=== PATIENT | female | born 1950 | race Caucasian/White ===

== ENCOUNTER 2024-10-20 15:32 | Inpatient (IN) | payer MEDICARE, BC ==
[~2024-10-20] VITALS: Ht 170.2 cm; Wt 77.0 kg
[~2024-10-20 15:32] MED LIST: AMLO5TAB16 PO; ATOR-429 PO; CLONOPIN; ESCI20TA PO; LANTUS SQ; METF-900 PO; OXYC80TA37 PO; VALS1TAB73 PO; ZOLP10TA PO; dilaudid PO
[2024-10-20] MEDS: HYDROmorphone 1 mg/ml syringe IV ONE (17:00)
[2024-10-20 17:26] LABS: BASOPHILS % (AUTO) 0.4 % (0-1); EOSINOPHILS % (AUTO) 0.3 % (0-6); HEMATOCRIT 44.9 % (35.0-45.0); HEMOGLOBIN 15.5 g/dl (12.0-16.0); LYMPHOCYTES # (AUTO) 1.7 X10'3 (1.1-4.8); LYMPHOCYTES % (AUTO) 17.9 % (21-51); MEAN CORPUSCULAR HEMOGLOBIN 32.8 PG (27.0-31.0); MEAN CORPUSCULAR HGB CONC 34.5 g/dL (33.0-36.5); MEAN CORPUSCULAR VOLUME 95.3 FL (78-98); MEAN PLATELET VOLUME 10.7 FL (7.4-10.4); MONOCYTES # (AUTO) 0.7 X10'3 (0-0.9); MONOCYTES % (AUTO) 7.6 % (2-12); NEUTROPHILS # (AUTO) 7.2 X10'3 (1.8-7.7); NEUTROPHILS % (AUTO) 73.8 % (42-75); PLATELET COUNT 285 X10'3 (140-440); RED BLOOD COUNT 4.71 X10'6 (4.20-5.60); RED CELL DISTRIBUTION WIDTH 14.5 % (11.5-14.5); WHITE BLOOD COUNT 9.8 X10'3 (4.5-11.0)
[2024-10-20 17:42] LABS: ALANINE AMINOTRANSFERASE 26 U/L (12-78); ALBUMIN 3.3 G/DL (3.4-5.0); ALBUMIN/GLOBULIN RATIO 0.8 (1.1-1.5); ALKALINE PHOSPHATASE 113 IU/L (46-116); ASPARTATE AMINO TRANSFERASE 21 U/L (10-37); BILIRUBIN,TOTAL 0.9 MG/DL (0.1-1.0); BLOOD UREA NITROGEN 13 MG/DL (7-18); BUN/CREATININE RATIO 13.5 (10.0-20.0); CALCIUM 8.8 MG/DL (8.5-10.1); CHLORIDE 102 MMOL/L (99-107); CREATININE 0.96 MG/DL (0.40-0.90); GLUCOSE 146 MG/DL (70-104); SODIUM 142 MMOL/L (135-145); TOTAL PROTEIN 7.4 G/DL (6.4-8.2); eCRCL 52 ML/MIN; eGFR 57 ML/MIN
[2024-10-20 17:47] LABS: POTASSIUM 1.9 MMOL/L (3.5-5.1)
[2024-10-20 17:50] LABS: LARGE PLATELETS FEW; PLATELET ESTIMATE NORMAL
[2024-10-20 17:54] LABS: ANION GAP 12 (8-16); TOTAL CARBON DIOXIDE 27.8 MMOL/L (24-32)
[2024-10-20 18:10] LABS: MAGNESIUM 1.9 MG/DL (1.5-2.4)
[2024-10-20] MEDS: potassium CL 10mEq/100ml bag 100 ML IV SCH (18:11)
[2024-10-20] MEDS: proCHLORperazine 10 MG/2 ml inj IV ONE (18:13)
[2024-10-20] MEDS: potassium Cl 20 mEq SR tablet PO STA (18:13)
[2024-10-20] MEDS: diphenhydrAMINE 50 mg/ml inj IV ONE (18:13)
[2024-10-20] MEDS: normal saline 1000ml 1,000 ML IV ONE (18:28)
[2024-10-20 18:30] LABS: APTT 28 SECONDS (22-32); INR 1.2 INR; PROTHROMBIN TIME 12.3 SECONDS (9.0-12.0)
[2024-10-20] MEDS ORDERED: magnesium sulf-water 4G/100mL 100 ML IV PRN (18:35)
[2024-10-20] MEDS ORDERED: ondansetron/PF 4mg/2ml inj IV PRN (18:35)
[2024-10-20] MEDS ORDERED: magnesium sulf-water 2g/50mL 50 ML IV PRN (18:35)
[2024-10-20] MEDS ORDERED: potassium Cl 20 mEq SR tablet PO PRN (18:35)
[2024-10-20] MEDS ORDERED: magnesium Cl slow-release 64mg tablet PO PRN (18:35)
[2024-10-20] MEDS ORDERED: acetaminophen 325mg tablet PO PRN (18:35)
[2024-10-20] MEDS ORDERED: glucagon, human recombinant 1mg kit SUBCUT PRN (18:40)
[2024-10-20] MEDS ORDERED: DEXTROSE 15 GM of carb/4 tabs (each vial/BOTTLE has 4 tablets) PO PRN ×2 (18:40)
[2024-10-20] MEDS ORDERED: dextrose 50%-water 50ml dispensing syringe IV PRN ×2 (18:40)
[2024-10-20] MEDS: magnesium sulf-water 2g/50mL 50 ML IV ONE ×2 (19:15→19:34)
[2024-10-20] MEDS: docusate sod 100mg capsule PO SCH (19:39)
[2024-10-20] MEDS: K and/or MAG REPLACEMENT MC SCH (19:40)
[2024-10-20] MEDS: nicotine 7mg patch - 24hr TD ONE (20:42)
[2024-10-20] MEDS: insulin glargine (Lantus) pen - multi-dose SQ SCH (21:00)
[2024-10-20] MEDS: heparin, porcine 5000 units/ml vial SQ SCH (21:09)
[2024-10-20 21:34] LABS: ANION GAP 10 (8-16); BLOOD UREA NITROGEN 11 MG/DL (7-18); BUN/CREATININE RATIO 13.6 (10.0-20.0); CALCIUM 8.6 MG/DL (8.5-10.1); CHLORIDE 105 MMOL/L (99-107); CREATININE 0.81 MG/DL (0.40-0.90); GLUCOSE 201 MG/DL (70-104); SODIUM 144 MMOL/L (135-145); TOTAL CARBON DIOXIDE 29.5 MMOL/L (24-32); eCRCL 61 ML/MIN; eGFR 70 ML/MIN
[2024-10-20 21:41] LABS: POTASSIUM 2.5 MMOL/L (3.5-5.1)
[2024-10-20] MEDS: INSULIN LISPRO 100 UNIT/ML INSULN.PEN MULTI-DOSE SQ SCH (22:05)
[2024-10-20 22:19] LABS: ABG BASE EXCESS 2.1 mmol/L (-2.0-3.0); ABG HCO3 25.5 mmol/L (21.0-28.0); ABG OXYGEN SATURATION 94.6 % (94.0-98.0); ABG PCO2 (T) 36.2 mmHg (32.0-45.0); ABG PH (T) 7.466 (7.350-7.450); ABG PO2 (T) 70.7 mmHg (83.0-108.0); ALLEN'S TEST POSITIVE; FCOHb 2.3 % (0.5-1.5); FHHb 5.3 % (0.0-5.0); FMetHb 0.3 % (0.0-1.5); FO2Hb 92.1 % (94.0-98.0); MODE ROOM AIR; PATIENT TEMPERATURE 37.1; TOTAL HEMOGLOBIN 14.7 G/dl (12.0-16.0)
[2024-10-20 22:49] LABS: BILIRUBIN,URINE NEGATIVE (Neg); CLARITY,URINE SLIGHTLY CLOUDY (Clear); COLOR,URINE YELLOW (Yellow); GLUCOSE, URINE NEGATIVE (Neg); KETONES,URINE TRACE mg/dl (Neg); LEUKOCYTE ESTERASE ,URINE NEGATIVE (Neg); NITRITES, URINE NEGATIVE (Neg); OCCULT BLOOD,URINE NEGATIVE (Neg); PROTEIN,URINE 100 mg/dl (Neg); UROBILINOGEN,URINE 0.2 E.U/dL (0.2-1.0)
[2024-10-20 22:56] LABS: UA COLLECTION TYPE URINAL
[2024-10-20 22:57] LABS: BACTERIA,URINE 4+ /HPF (Neg); SQUAMOUS EPITHELIAL CELL,UR FEW /LPF (FEW)
[2024-10-20 22:58] LABS: RBC,URINE NONE SEEN /HPF (0-2); WBC,URINE 0-4 /HPF (0-4)
[2024-10-20] MEDS ORDERED: TRAZ-251 PO (23:53)
[2024-10-20] MEDS ORDERED: CYCL-1 PO (23:53)
[2024-10-21] MEDS: amLODIPine 2.5mg tablet PO SCH (00:21)
[2024-10-21] MEDS: HYDROcodone/acetaminophen 10/325mg tab PO PRN (00:22)
[2024-10-21 04:09] LABS: BASOPHILS # (AUTO) 0.1 X10'3 (0-0.2); BASOPHILS % (AUTO) 0.7 % (0-1); EOSINOPHILS # (AUTO) 0.1 X10'3 (0-0.9); EOSINOPHILS % (AUTO) 1.4 % (0-6); HEMATOCRIT 43.8 % (35.0-45.0); HEMOGLOBIN 14.5 g/dl (12.0-16.0); LYMPHOCYTES # (AUTO) 2.1 X10'3 (1.1-4.8); MEAN CORPUSCULAR HEMOGLOBIN 32.5 PG (27.0-31.0); MEAN CORPUSCULAR HGB CONC 33.2 g/dL (33.0-36.5); MEAN PLATELET VOLUME 11.2 FL (7.4-10.4); MONOCYTES # (AUTO) 0.7 X10'3 (0-0.9); MONOCYTES % (AUTO) 8.5 % (2-12); NEUTROPHILS # (AUTO) 5.5 X10'3 (1.8-7.7); NEUTROPHILS % (AUTO) 64.4 % (42-75); PLATELET COUNT 245 X10'3 (140-440); RED BLOOD COUNT 4.47 X10'6 (4.20-5.60); RED CELL DISTRIBUTION WIDTH 14.9 % (11.5-14.5); WHITE BLOOD COUNT 8.6 X10'3 (4.5-11.0)
[2024-10-21 04:17] LABS: ALBUMIN 2.9 G/DL (3.4-5.0); ANION GAP 11 (8-16); BLOOD UREA NITROGEN 11 MG/DL (7-18); BUN/CREATININE RATIO 16.2 (10.0-20.0); CALCIUM 8.2 MG/DL (8.5-10.1); CHLORIDE 106 MMOL/L (99-107); CREATININE 0.68 MG/DL (0.40-0.90); GLUCOSE 137 MG/DL (70-104); MAGNESIUM 2.3 MG/DL (1.5-2.4); SODIUM 141 MMOL/L (135-145); TOTAL CARBON DIOXIDE 24.4 MMOL/L (24-32); eCRCL 73 ML/MIN; eGFR 85 ML/MIN
[2024-10-21 04:28] LABS: POTASSIUM 2.9 MMOL/L (3.5-5.1)
[2024-10-21] MEDS ORDERED: losartan 25mg tablet PO SCH (08:00)
[2024-10-21] MEDS: amLODIPine 5mg tablet PO SCH (08:13)
[2024-10-21] MEDS: ESCITALOPRAM 10 mg tablet 10 MG TABLET PO SCH (08:14)
[2024-10-21] MEDS: atorvastatin 20mg tablet PO SCH (08:15)
[2024-10-21] MEDS: losartan 50mg tablet PO ONE (08:15)
[2024-10-21] MEDS: INSULIN LISPRO 100 UNIT/ML INSULN.PEN MULTI-DOSE SQ SCH (09:00)
[2024-10-21] MEDS: potassium Cl 40MEQ/1/2NS 520ml 520 ML IV PRN (10:33)
[2024-10-21] MEDS: losartan 50mg tablet PO SCH (10:36)
[2024-10-21] MEDS: nicotine 7mg patch - 24hr TD SCH (10:37)
[2024-10-21 11:17] LABS: ALBUMIN 3.2 G/DL (3.4-5.0); ANION GAP 10 (8-16); BLOOD UREA NITROGEN 8 MG/DL (7-18); BUN/CREATININE RATIO 12.3 (10.0-20.0); CALCIUM 8.5 MG/DL (8.5-10.1); CHLORIDE 105 MMOL/L (99-107); CREATININE 0.65 MG/DL (0.40-0.90); GLUCOSE 217 MG/DL (70-104); SODIUM 141 MMOL/L (135-145); TOTAL CARBON DIOXIDE 25.9 MMOL/L (24-32); eCRCL 76 ML/MIN; eGFR 90 ML/MIN
[2024-10-21 11:22] LABS: POTASSIUM 2.4 MMOL/L (3.5-5.1)
[2024-10-21] MEDS: potassium Cl 20 mEq SR tablet PO PRN (14:39)
[2024-10-21] MEDS: hydrALAZINE 20mg/ml inj. IV PRN (14:40)
[2024-10-21] MEDS: LIDOcaine 5% patch TP SCH (14:49)
[2024-10-21 16:17] VITALS: BP 218/119; PULSE 95; RESP 16; TEMP 98.9; O2SAT 95
[2024-10-21] MEDS: cloNIDine 0.1 mg tablet PO ONE (16:36)
[2024-10-21] MEDS: HYDROmorphone 1 mg/ml syringe IV PRN (16:37)
[2024-10-21 17:10] VITALS: BP 212/84
[2024-10-21] MEDS: clonazePAM 1mg tablet PO SCH (17:29)
[2024-10-21 18:03] VITALS: BP 177/81
[2024-10-21] MEDS ORDERED: FLU VACC TS2024-25(6MOS UP)/PF 45 MCG/0.5 ML SYRINGE IMVAC ONE (18:05)
[2024-10-21] MEDS ORDERED: pneumococcal 23-VAL P-sac vacc 25 mcg/0.5ml vial IMVAC ONE (18:05)
[2024-10-21] MEDS: insulin glargine (Lantus) pen - multi-dose SQ SCH (21:00)
[2024-10-21 22:00] VITALS: BP 146/61; PULSE 59; RESP 14; TEMP 98.2; O2SAT 95
[2024-10-22] VITALS (7 sets, daily range): BP systolic 126–184; BP diastolic 51–81; PULSE 52–77; RESP 14–16; TEMP 98–98.7; O2SAT 95–97
[2024-10-22] MEDS: traZODone 50mg tablet PO PRN (00:43)
[2024-10-22 06:20] LABS: BASOPHILS # (AUTO) 0.1 X10'3 (0-0.2); EOSINOPHILS # (AUTO) 0.1 X10'3 (0-0.9); HEMATOCRIT 42.4 % (35.0-45.0); HEMOGLOBIN 14.3 g/dl (12.0-16.0); LYMPHOCYTES # (AUTO) 2.2 X10'3 (1.1-4.8)
[2024-10-22 06:22] LABS: BASOPHILS % (AUTO) 0.8 % (0-1); EOSINOPHILS % (AUTO) 1.3 % (0-6); LYMPHOCYTES % (AUTO) 30.2 % (21-51); MEAN CORPUSCULAR HEMOGLOBIN 32.8 PG (27.0-31.0); MEAN CORPUSCULAR HGB CONC 33.8 g/dL (33.0-36.5); MEAN PLATELET VOLUME 11.2 FL (7.4-10.4); MONOCYTES # (AUTO) 0.5 X10'3 (0-0.9); MONOCYTES % (AUTO) 7.1 % (2-12); NEUTROPHILS # (AUTO) 4.5 X10'3 (1.8-7.7); NEUTROPHILS % (AUTO) 60.6 % (42-75); PLATELET COUNT 245 X10'3 (140-440); RED BLOOD COUNT 4.37 X10'6 (4.20-5.60); RED CELL DISTRIBUTION WIDTH 14.6 % (11.5-14.5); WHITE BLOOD COUNT 7.4 X10'3 (4.5-11.0)
[2024-10-22 06:30] LABS: ALBUMIN 2.8 G/DL (3.4-5.0); ANION GAP 9 (8-16); BLOOD UREA NITROGEN 11 MG/DL (7-18); BUN/CREATININE RATIO 15.1 (10.0-20.0); CALCIUM 8.6 MG/DL (8.5-10.1); CHLORIDE 106 MMOL/L (99-107); CREATININE 0.73 MG/DL (0.40-0.90); GLUCOSE 147 MG/DL (70-104); MAGNESIUM 1.9 MG/DL (1.5-2.4); SODIUM 141 MMOL/L (135-145); THYROID STIMULATING HORMONE 1.94 ulU/ml (0.34-4.50); eCRCL 68 ML/MIN; eGFR 78 ML/MIN
[2024-10-22 06:50] LABS: POTASSIUM 3.4 MMOL/L (3.5-5.1)
[2024-10-22] MEDS ORDERED: LOSA50TA64 PO (09:03)
[2024-10-22] MEDS ORDERED: AMLO5TAB16 PO (09:41)
[2024-10-22] MEDS: cyclobenzaprine 10mg tablet PO PRN (10:16)
[2024-10-22] MEDS: HYDROcodone/acetaminophen 5mg/325mg tablet PO PRN (10:17)
[2024-10-22] MEDS ORDERED: POTA-207 PO (11:02)
[2024-10-22] MEDS: pneumococcal 23-VAL P-sac vacc 25 mcg/0.5ml vial IMVAC ONE (11:17)
[2024-10-22] MEDS: FLU VACC TS2024-25(6MOS UP)/PF 45 MCG/0.5 ML SYRINGE IMVAC ONE (11:19)
[2024-10-22] MEDS: HYDROmorphone inj. 0.5 MG/0.5 ML DISP.SYRIN IV PRN (19:36)
[2024-10-23 05:59] LABS: BASOPHILS # (AUTO) 0.1 X10'3 (0-0.2); EOSINOPHILS # (AUTO) 0.2 X10'3 (0-0.9); HEMOGLOBIN 15.5 g/dl (12.0-16.0); MONOCYTES # (AUTO) 0.5 X10'3 (0-0.9); MONOCYTES % (AUTO) 7.4 % (2-12); NEUTROPHILS # (AUTO) 3.8 X10'3 (1.8-7.7)
[2024-10-23 06:00] VITALS: BP 147/79; PULSE 79; RESP 14; TEMP 97.7; O2SAT 95
[2024-10-23 06:01] LABS: BASOPHILS % (AUTO) 1.2 % (0-1); EOSINOPHILS % (AUTO) 2.2 % (0-6); HEMATOCRIT 45.4 % (35.0-45.0); LYMPHOCYTES # (AUTO) 2.5 X10'3 (1.1-4.8); LYMPHOCYTES % (AUTO) 35.7 % (21-51); MEAN CORPUSCULAR HEMOGLOBIN 33.2 PG (27.0-31.0); MEAN CORPUSCULAR HGB CONC 34.1 g/dL (33.0-36.5); MEAN CORPUSCULAR VOLUME 97.3 FL (78-98); MEAN PLATELET VOLUME 10.9 FL (7.4-10.4); NEUTROPHILS % (AUTO) 53.5 % (42-75); PLATELET COUNT 274 X10'3 (140-440); RED BLOOD COUNT 4.67 X10'6 (4.20-5.60)
[2024-10-23 06:06] LABS: ALBUMIN 2.8 G/DL (3.4-5.0); ANION GAP 8 (8-16); BLOOD UREA NITROGEN 14 MG/DL (7-18); BUN/CREATININE RATIO 18.7 (10.0-20.0); CALCIUM 8.8 MG/DL (8.5-10.1); CHLORIDE 108 MMOL/L (99-107); CREATININE 0.75 MG/DL (0.40-0.90); GLUCOSE 154 MG/DL (70-104); MAGNESIUM 2.7 MG/DL (1.5-2.4); POTASSIUM 3.7 MMOL/L (3.5-5.1); SODIUM 142 MMOL/L (135-145); TOTAL CARBON DIOXIDE 25.7 MMOL/L (24-32); eCRCL 66 ML/MIN; eGFR 76 ML/MIN
[2024-10-23 06:29] LABS: LARGE PLATELETS FEW; PLATELET ESTIMATE NORMAL
[2024-10-23 10:00] VITALS: BP 198/79; PULSE 84; RESP 17; TEMP 97.6; O2SAT 97
[2024-10-23 10:36] VITALS: BP_SYST 197
[2024-10-23] MEDS: HYDROmorphone 1 mg/ml syringe IV ONE (10:36)
[2024-10-23] MEDS: spironolactone 25 MG tablet PO STA (10:36)
[2024-10-23] MEDS: clonazePAM 1mg tablet PO ONE (12:07)
[2024-10-23] MEDS ORDERED: SPIR25TA5 PO (13:16)
[2024-10-27 05:16] LABS: RENIN, PLASMA 0.412 ng/mL/hr (.)
[2024-10-27 15:08] LABS: ALDOSTERONE 4.6 ng/dL (.)
[2024-10-29] MEDS ORDERED: INSULIN LISPRO 100 UNIT/ML INSULN.PEN MULTI-DOSE SQ SCH (18:00)
== END 2024-10-23 14:25 | disposition home or self-care (01) | DRG 89 ==
LOC: ER 15:33 → ED HOLD 18:37 → ORTHO 4S 10-21 16:00
PROVIDERS: ADMIT Family Medicine; ATTEND Family Medicine
PROC: 3E02340 Introduction of Influenza Vaccine into Muscle, Percutaneous Approach (ICD-10-PCS; principal; 2024-10-21)
PROC: 3E0234Z Introduction of Serum, Toxoid and Vaccine into Muscle, Percutaneous Approach (ICD-10-PCS; 2024-10-21)
DX: S06.0X0A Concussion without loss of consciousness, initial encounter (principal); I69.351 Hemiplegia and hemiparesis following cerebral infarction affecting right dominant side; S22.31XA Fracture of one rib, right side, initial encounter for closed fracture; I16.0 Hypertensive urgency; G89.29 Other chronic pain; E87.6 Hypokalemia; I10 Essential (primary) hypertension; Z66 Do not resuscitate; E11.9 Type 2 diabetes mellitus without complications; R07.89 Other chest pain; T50.2X5A Adverse effect of carbonic-anhydrase inhibitors, benzothiadiazides and other diuretics, initial encounter; W05.0XXA Fall from non-moving wheelchair, initial encounter; Z79.4 Long term (current) use of insulin; Z79.899 Other long term (current) drug therapy; Z79.84 Long term (current) use of oral hypoglycemic drugs; Y93.89 Activity, other specified; Y92.89 Other specified places as the place of occurrence of the external cause; Y99.8 Other external cause status
CPT/HCPCS: 36415; 36600; 70450; 71101; 80048; 80053; 81001; 82088; 82570; 82803; 82948; 83036; 83735; 84132; 84133; 84244; 84300; 84443; 85008; 85018; 85025; 85610; 85730; 87081; 90686; 90732; 93005; 93975; 97161; 97530; 99291; G0378; J0360; J0780; J1171; J1200; J1644; J1815; J3480; J7030

== ENCOUNTER 2024-10-28 14:38 | Inpatient (IN) | payer BC, MEDICARE ==
[~2024-10-28] VITALS: Ht 170.2 cm; Wt 72.7 kg
[~2024-10-28 14:38] MED LIST changes: +CYCL-1 PO; -LANTUS SQ; +LOSA50TA64 PO; -OXYC80TA37 PO; +POTA-207 PO; +SPIR25TA5 PO; +TRAZ-251 PO; -VALS1TAB73 PO
[2024-10-28 15:56] LABS: BASOPHILS # (AUTO) 0.1 X10'3 (0-0.2); LYMPHOCYTES # (AUTO) 2.3 X10'3 (1.1-4.8); LYMPHOCYTES % (AUTO) 20.2 % (21-51); MEAN PLATELET VOLUME 10.7 FL (7.4-10.4); NEUTROPHILS # (AUTO) 7.9 X10'3 (1.8-7.7); WHITE BLOOD COUNT 11.2 X10'3 (4.5-11.0)
[2024-10-28 15:57] LABS: BASOPHILS % (AUTO) 0.6 % (0-1); EOSINOPHILS # (AUTO) 0.1 X10'3 (0-0.9); EOSINOPHILS % (AUTO) 0.5 % (0-6); HEMATOCRIT 52.7 % (35.0-45.0); MEAN CORPUSCULAR HEMOGLOBIN 32.9 PG (27.0-31.0); MEAN CORPUSCULAR HGB CONC 34.4 g/dL (33.0-36.5); MEAN CORPUSCULAR VOLUME 95.7 FL (78-98); MONOCYTES # (AUTO) 0.8 X10'3 (0-0.9); MONOCYTES % (AUTO) 7.6 % (2-12); NEUTROPHILS % (AUTO) 71.1 % (42-75); PLATELET COUNT 457 X10'3 (140-440); RED CELL DISTRIBUTION WIDTH 14.7 % (11.5-14.5)
[2024-10-28 16:03] LABS: HEMOGLOBIN 18.1 g/dl (12.0-16.0)
[2024-10-28 16:13] LABS: ALANINE AMINOTRANSFERASE 38 U/L (12-78); ALBUMIN 4.1 G/DL (3.4-5.0); ALBUMIN/GLOBULIN RATIO 0.9 (1.1-1.5); ALKALINE PHOSPHATASE 132 IU/L (46-116); ANION GAP 16 (8-16); ASPARTATE AMINO TRANSFERASE 33 U/L (10-37); BILIRUBIN,TOTAL 0.8 MG/DL (0.1-1.0); BLOOD UREA NITROGEN 33 MG/DL (7-18); BUN/CREATININE RATIO 23.2 (10.0-20.0); CALCIUM 9.7 MG/DL (8.5-10.1); CHLORIDE 103 MMOL/L (99-107); CREATININE 1.42 MG/DL (0.40-0.90); GLUCOSE 134 MG/DL (70-104); LIPASE 27 U/L (16-77); POTASSIUM 3.2 MMOL/L (3.5-5.1); SODIUM 138 MMOL/L (135-145); TOTAL CARBON DIOXIDE 19.1 MMOL/L (24-32); TOTAL PROTEIN 8.7 G/DL (6.4-8.2); eCRCL 35 ML/MIN; eGFR 36 ML/MIN
[2024-10-28 16:53] LABS: GIANT PLATELET FEW; LARGE PLATELETS FEW
[2024-10-28 16:54] LABS: PLATELET ESTIMATE NORMAL
[2024-10-28] MEDS: potassium Cl 20 mEq SR tablet PO STA (19:13)
[2024-10-28] MEDS: acetaminophen 1,000mg/100ml IV 100 ML IV ONE ×3 (19:19→22:20)
[2024-10-28] MEDS: proCHLORperazine 10 MG/2 ml inj IV ONE (19:20)
[2024-10-28] MEDS: normal saline 1000ml 1,000 ML IV ONE (19:20)
[2024-10-28] MEDS ORDERED: magnesium sulf-water 2g/50mL 50 ML IV PRN (21:05)
[2024-10-28] MEDS ORDERED: magnesium hydroxide 30ml (MOM) UD suspension PO PRN (21:05)
[2024-10-28] MEDS ORDERED: mag hydrox/Alum hydrox/simeth 30ml oral suspension PO PRN (21:05)
[2024-10-28] MEDS ORDERED: ondansetron/PF 4mg/2ml inj IV PRN (21:05)
[2024-10-28] MEDS ORDERED: potassium Cl 40MEQ/1/2NS 520ml 520 ML IV PRN (21:05)
[2024-10-28] MEDS ORDERED: magnesium sulf-water 4G/100mL 100 ML IV PRN (21:05)
[2024-10-28] MEDS ORDERED: potassium Cl 20 mEq SR tablet PO PRN (21:05)
[2024-10-28] MEDS ORDERED: magnesium Cl slow-release 64mg tablet PO PRN (21:05)
[2024-10-28] MEDS ORDERED: glucagon, human recombinant 1mg kit SUBCUT PRN (21:10)
[2024-10-28] MEDS: insulin glargine (Lantus) pen - multi-dose SQ SCH (21:10)
[2024-10-28] MEDS ORDERED: dextrose 50%-water 50ml dispensing syringe IV PRN ×2 (21:10)
[2024-10-28] MEDS ORDERED: DEXTROSE 15 GM of carb/4 tabs (each vial/BOTTLE has 4 tablets) PO PRN ×2 (21:10)
[2024-10-28 21:43] LABS: PRO BRAIN NATRIURETIC PEPTIDE 189 PG/ML (0-125)
[2024-10-28] MEDS: normal saline 1000ml 1,000 ML IV SCH (22:20)
[2024-10-28] MEDS: amLODIPine 5mg tablet PO ONE (22:21)
[2024-10-28] MEDS: cyclobenzaprine 10mg tablet PO ONE (22:21)
[2024-10-29] MEDS: acetaminophen 325mg tablet PO PRN (03:25)
[2024-10-29 03:30] LABS: BASOPHILS # (AUTO) 0.1 X10'3 (0-0.2); BASOPHILS % (AUTO) 0.8 % (0-1); EOSINOPHILS # (AUTO) 0.1 X10'3 (0-0.9); EOSINOPHILS % (AUTO) 1.1 % (0-6); HEMATOCRIT 50.1 % (35.0-45.0); HEMOGLOBIN 16.9 g/dl (12.0-16.0); LYMPHOCYTES # (AUTO) 2.3 X10'3 (1.1-4.8); LYMPHOCYTES % (AUTO) 25.6 % (21-51); MEAN CORPUSCULAR HEMOGLOBIN 32.6 PG (27.0-31.0); MEAN CORPUSCULAR HGB CONC 33.7 g/dL (33.0-36.5); MEAN CORPUSCULAR VOLUME 96.7 FL (78-98); MEAN PLATELET VOLUME 10.3 FL (7.4-10.4); MONOCYTES # (AUTO) 0.8 X10'3 (0-0.9); MONOCYTES % (AUTO) 9.3 % (2-12); NEUTROPHILS # (AUTO) 5.6 X10'3 (1.8-7.7); NEUTROPHILS % (AUTO) 63.2 % (42-75); PLATELET COUNT 339 X10'3 (140-440); RED BLOOD COUNT 5.19 X10'6 (4.20-5.60); RED CELL DISTRIBUTION WIDTH 14.4 % (11.5-14.5); WHITE BLOOD COUNT 8.8 X10'3 (4.5-11.0)
[2024-10-29] MEDS: Melatonin 3mg tablet PO ONE (03:43)
[2024-10-29 03:58] LABS: ALANINE AMINOTRANSFERASE 37 U/L (12-78); ALBUMIN 3.5 G/DL (3.4-5.0); ALBUMIN/GLOBULIN RATIO 0.9 (1.1-1.5); ALKALINE PHOSPHATASE 115 IU/L (46-116); ANION GAP 14 (8-16); ASPARTATE AMINO TRANSFERASE 32 U/L (10-37); BILIRUBIN,TOTAL 0.7 MG/DL (0.1-1.0); BLOOD UREA NITROGEN 32 MG/DL (7-18); BUN/CREATININE RATIO 26.9 (10.0-20.0); CALCIUM 9.2 MG/DL (8.5-10.1); CHLORIDE 107 MMOL/L (99-107); CHOL/HDL RATIO 5.1 (0.00-4.99); CHOLESTEROL 179 MG/DL (0-200); CREATININE 1.19 MG/DL (0.40-0.90); GLUCOSE 127 MG/DL (70-104); HDL CHOLESTEROL 35 MG/DL (35-60); LDL CHOLESTEROL 114 MG/DL (50-100); SODIUM 141 MMOL/L (135-145); THYROID STIMULATING HORMONE 1.11 ulU/ml (0.34-4.50); TOTAL CARBON DIOXIDE 20.4 MMOL/L (24-32); TOTAL PROTEIN 7.5 G/DL (6.4-8.2); TRIGLYCERIDES 125 MG/DL (20-135); eCRCL 42 ML/MIN; eGFR 45 ML/MIN
[2024-10-29 04:05] LABS: POTASSIUM 3.5 MMOL/L (3.5-5.1)
[2024-10-29] MEDS: atorvastatin 20mg tablet PO SCH (07:40)
[2024-10-29] MEDS: losartan 50mg tablet PO SCH (07:41)
[2024-10-29] MEDS: ESCITALOPRAM 10 mg tablet 10 MG TABLET PO SCH (07:41)
[2024-10-29] MEDS: amLODIPine 5mg tablet PO SCH (07:42)
[2024-10-29] MEDS: heparin, porcine 5000 units/ml vial SQ SCH (07:43)
[2024-10-29] MEDS: INSULIN LISPRO 100 UNIT/ML INSULN.PEN MULTI-DOSE SQ SCH (07:47)
[2024-10-29] MEDS: K and/or MAG REPLACEMENT MC SCH (08:00)
[2024-10-29] MEDS ORDERED: CLON-372 PO (11:27)
[2024-10-29] MEDS ORDERED: POTA-207 PO (11:48)
[2024-10-29] MEDS ORDERED: SPIR25TA5 PO (11:48)
[2024-10-29] MEDS ORDERED: GUAN1TAB PO (11:48)
[2024-10-29] MEDS: topiramate 25mg tablet PO ONE (15:15)
[2024-10-29] MEDS: clonazePAM 1mg tablet PO PRN (15:40)
[2024-10-29] MEDS ORDERED: acetaminophen 325mg tablet PO PRN (15:45)
[2024-10-29] MEDS: HYDROcodone/acetaminophen 5mg/325mg tablet PO PRN (17:27)
[2024-10-29 18:00] VITALS: BP 159/69; PULSE 66; RESP 20; TEMP 97.9; O2SAT 97
[2024-10-29 20:00] VITALS: RESP 20; O2SAT 96
[2024-10-29] MEDS ORDERED: Melatonin 3mg tablet PO SCH (21:00)
[2024-10-29] MEDS: topiramate 25mg tablet PO SCH (21:51)
[2024-10-29] MEDS: Melatonin 3mg tablet PO SCH (21:52)
[2024-10-29] MEDS: HYDROcodone/acetaminophen 10/325mg tab PO PRN (21:55)
[2024-10-29] MEDS: insulin glargine (Lantus) pen - multi-dose SQ SCH (21:55)
[2024-10-29 22:00] VITALS: BP 114/50; PULSE 56; RESP 16; TEMP 98.4; O2SAT 94
[2024-10-30 05:37] LABS: BASOPHILS # (AUTO) 0.1 X10'3 (0-0.2); EOSINOPHILS # (AUTO) 0.1 X10'3 (0-0.9); EOSINOPHILS % (AUTO) 1.6 % (0-6); HEMATOCRIT 44.8 % (35.0-45.0); HEMOGLOBIN 15.1 g/dl (12.0-16.0); LYMPHOCYTES # (AUTO) 2.3 X10'3 (1.1-4.8); LYMPHOCYTES % (AUTO) 32.5 % (21-51); MEAN CORPUSCULAR HEMOGLOBIN 32.6 PG (27.0-31.0); MEAN CORPUSCULAR HGB CONC 33.8 g/dL (33.0-36.5); MEAN CORPUSCULAR VOLUME 96.6 FL (78-98); MEAN PLATELET VOLUME 10.6 FL (7.4-10.4); MONOCYTES # (AUTO) 0.6 X10'3 (0-0.9); NEUTROPHILS % (AUTO) 55.9 % (42-75); PLATELET COUNT 276 X10'3 (140-440); RED BLOOD COUNT 4.64 X10'6 (4.20-5.60); RED CELL DISTRIBUTION WIDTH 14.4 % (11.5-14.5); WHITE BLOOD COUNT 7.2 X10'3 (4.5-11.0)
[2024-10-30 05:59] LABS: ALANINE AMINOTRANSFERASE 28 U/L (12-78); ALBUMIN/GLOBULIN RATIO 0.8 (1.1-1.5); ALKALINE PHOSPHATASE 103 IU/L (46-116); ANION GAP 11 (8-16); ASPARTATE AMINO TRANSFERASE 29 U/L (10-37); BILIRUBIN,TOTAL 0.7 MG/DL (0.1-1.0); BLOOD UREA NITROGEN 22 MG/DL (7-18); CALCIUM 8.5 MG/DL (8.5-10.1); CHLORIDE 108 MMOL/L (99-107); CREATININE 0.71 MG/DL (0.40-0.90); GLUCOSE 134 MG/DL (70-104); MAGNESIUM 1.9 MG/DL (1.5-2.4); POTASSIUM 3.3 MMOL/L (3.5-5.1); SODIUM 142 MMOL/L (135-145); TOTAL CARBON DIOXIDE 23.4 MMOL/L (24-32); TOTAL PROTEIN 6.6 G/DL (6.4-8.2); eCRCL 70 ML/MIN; eGFR 81 ML/MIN
[2024-10-30 06:00] VITALS: BP 143/52; PULSE 60; RESP 16; TEMP 99.2; O2SAT 97
[2024-10-30] MEDS: potassium Cl 20 mEq SR tablet PO PRN (07:15)
[2024-10-30 07:23] VITALS: RESP 16; O2SAT 97
[2024-10-30] MEDS ORDERED: ATOR-2 PO (12:04)
[2024-10-30] MEDS ORDERED: ESCI20TA36 PO (12:04)
[2024-10-30] MEDS ORDERED: TOPI-95 PO (12:05)
[2024-10-30 12:11] VITALS: BP 136/62; PULSE 55; RESP 16; TEMP 98.2; O2SAT 99
[2024-10-30 18:00] VITALS: BP 173/73; PULSE 60; RESP 15; TEMP 98.7; O2SAT 96
[2024-10-30 20:00] VITALS: RESP 58; O2SAT 96
[2024-10-30 22:00] VITALS: BP 139/58; PULSE 58; RESP 14; TEMP 97.5; O2SAT 98
[2024-10-31 04:59] LABS: BASOPHILS # (AUTO) 0.1 X10'3 (0-0.2); BASOPHILS % (AUTO) 1.1 % (0-1); EOSINOPHILS # (AUTO) 0.1 X10'3 (0-0.9); EOSINOPHILS % (AUTO) 2.1 % (0-6); HEMATOCRIT 42.7 % (35.0-45.0); HEMOGLOBIN 14.4 g/dl (12.0-16.0); LYMPHOCYTES # (AUTO) 2.9 X10'3 (1.1-4.8); LYMPHOCYTES % (AUTO) 42.1 % (21-51); MEAN CORPUSCULAR HEMOGLOBIN 32.9 PG (27.0-31.0); MEAN CORPUSCULAR HGB CONC 33.8 g/dL (33.0-36.5); MEAN CORPUSCULAR VOLUME 97.2 FL (78-98); MEAN PLATELET VOLUME 10.9 FL (7.4-10.4); MONOCYTES # (AUTO) 0.6 X10'3 (0-0.9); MONOCYTES % (AUTO) 8.7 % (2-12); NEUTROPHILS # (AUTO) 3.1 X10'3 (1.8-7.7); PLATELET COUNT 244 X10'3 (140-440); RED BLOOD COUNT 4.39 X10'6 (4.20-5.60); RED CELL DISTRIBUTION WIDTH 14.5 % (11.5-14.5); WHITE BLOOD COUNT 6.8 X10'3 (4.5-11.0)
[2024-10-31 05:26] LABS: ALANINE AMINOTRANSFERASE 25 U/L (12-78); ALBUMIN 2.9 G/DL (3.4-5.0); ALBUMIN/GLOBULIN RATIO 0.8 (1.1-1.5); ALKALINE PHOSPHATASE 99 IU/L (46-116); ANION GAP 5 (8-16); ASPARTATE AMINO TRANSFERASE 26 U/L (10-37); BILIRUBIN,TOTAL 0.7 MG/DL (0.1-1.0); BLOOD UREA NITROGEN 17 MG/DL (7-18); BUN/CREATININE RATIO 18.7 (10.0-20.0); CALCIUM 8.4 MG/DL (8.5-10.1); CHLORIDE 109 MMOL/L (99-107); CREATININE 0.91 MG/DL (0.40-0.90); GLUCOSE 125 MG/DL (70-104); MAGNESIUM 1.6 MG/DL (1.5-2.4); POTASSIUM 4.4 MMOL/L (3.5-5.1); SODIUM 144 MMOL/L (135-145); TOTAL CARBON DIOXIDE 29.6 MMOL/L (24-32); TOTAL PROTEIN 6.4 G/DL (6.4-8.2); eCRCL 54 ML/MIN; eGFR 61 ML/MIN
[2024-10-31 06:52] VITALS: BP 152/69; PULSE 54; RESP 18; TEMP 97.6; O2SAT 100
[2024-10-31 08:06] VITALS: RESP 18; O2SAT 100
[2024-10-31] MEDS: spironolactone 25 MG tablet PO SCH (08:53)
[2024-10-31 10:55] VITALS: BP 155/66; PULSE 56; RESP 18; TEMP 98.9; O2SAT 99
[2024-10-31] MEDS ORDERED: METF-1203 PO (11:23)
== END 2024-10-31 12:42 | disposition home or self-care (01) | DRG 103 ==
LOC: ER 14:39 → ED HOLD 21:07 → SUR 3N 10-29 14:00
PROVIDERS: ADMIT Surgery Surgical Critical Care; ATTEND Internal Medicine
DX: G44.40 Drug-induced headache, not elsewhere classified, not intractable (principal); N39.0 Urinary tract infection, site not specified; G81.91 Hemiplegia, unspecified affecting right dominant side; T40.2X5A Adverse effect of other opioids, initial encounter; E86.0 Dehydration; E87.6 Hypokalemia; E11.9 Type 2 diabetes mellitus without complications; I10 Essential (primary) hypertension; E78.5 Hyperlipidemia, unspecified; D75.839 Thrombocytosis, unspecified; E87.8 Other disorders of electrolyte and fluid balance, not elsewhere classified; Y92.89 Other specified places as the place of occurrence of the external cause; Z88.8 Allergy status to other drugs, medicaments and biological substances
CPT/HCPCS: 36415; 71045; 80053; 80061; 82948; 83690; 83735; 83880; 84443; 85008; 85025; 85651; 87081; 87502; 87503; 87811; 97161; 97530; 99285; G0378; J0131; J0780; J1644; J1815; J7030

== ENCOUNTER 2024-11-01 13:20 | Emergency (ER) | payer BC, MEDICARE ==
[~2024-11-01] VITALS: Ht 170.2 cm; Wt 79.0 kg
[~2024-11-01 13:20] MED LIST changes: +ATOR-2 PO; -ATOR-429 PO; +CLON-372 PO; -CLONOPIN; -CYCL-1 PO; -ESCI20TA PO; +ESCI20TA36 PO; +GUAN1TAB PO; +METF-1203 PO; -METF-900 PO; +TOPI-95 PO; -TRAZ-251 PO; -dilaudid PO
[2024-11-01 14:03] LABS: BASOPHILS # (AUTO) 0.1 X10'3 (0-0.2); EOSINOPHILS # (AUTO) 0.1 X10'3 (0-0.9); EOSINOPHILS % (AUTO) 0.5 % (0-6); HEMATOCRIT 45.8 % (35.0-45.0); HEMOGLOBIN 15.5 g/dl (12.0-16.0); LYMPHOCYTES # (AUTO) 1.4 X10'3 (1.1-4.8); LYMPHOCYTES % (AUTO) 12.3 % (21-51); MEAN CORPUSCULAR HEMOGLOBIN 33.1 PG (27.0-31.0); MEAN CORPUSCULAR HGB CONC 33.8 g/dL (33.0-36.5); MEAN CORPUSCULAR VOLUME 97.7 FL (78-98); MEAN PLATELET VOLUME 10.7 FL (7.4-10.4); MONOCYTES # (AUTO) 0.6 X10'3 (0-0.9); NEUTROPHILS # (AUTO) 9.2 X10'3 (1.8-7.7); NEUTROPHILS % (AUTO) 81.2 % (42-75); PLATELET COUNT 225 X10'3 (140-440); RED BLOOD COUNT 4.68 X10'6 (4.20-5.60); RED CELL DISTRIBUTION WIDTH 14.7 % (11.5-14.5); WHITE BLOOD COUNT 11.4 X10'3 (4.5-11.0)
[2024-11-01 14:20] LABS: ALBUMIN 3.2 G/DL (3.4-5.0); ANION GAP 10 (8-16); BLOOD UREA NITROGEN 17 MG/DL (7-18); BUN/CREATININE RATIO 18.3 (10.0-20.0); CALCIUM 9.1 MG/DL (8.5-10.1); CHLORIDE 108 MMOL/L (99-107); CREATININE 0.93 MG/DL (0.40-0.90); GLUCOSE 235 MG/DL (70-104); MAGNESIUM 1.8 MG/DL (1.5-2.4); POTASSIUM 4.5 MMOL/L (3.5-5.1); PRO BRAIN NATRIURETIC PEPTIDE 169 PG/ML (0-125); SODIUM 142 MMOL/L (135-145); eCRCL 53 ML/MIN; eGFR 59 ML/MIN
[2024-11-01] MEDS: HYDROmorphone inj. 0.5 MG/0.5 ML DISP.SYRIN IV ONE (16:32)
[2024-11-01] MEDS: ondansetron/PF 4mg/2ml inj IV ONE (16:32)
[2024-11-01] MEDS: normal saline 1000ML IV soln IVB ONE (16:32)
[2024-11-01 19:54] VITALS: BP 188/90; PULSE 88; RESP 14; TEMP 97.9; O2SAT 94
== END 2024-11-01 20:04 | disposition home or self-care (01) ==
LOC: ER 13:21
DX: R53.1 Weakness (principal); R51.9 Headache, unspecified; Z86.73 Personal history of transient ischemic attack (TIA), and cerebral infarction without residual deficits; Z88.8 Allergy status to other drugs, medicaments and biological substances
CPT/HCPCS: 71045; 80048; 83735; 83880; 84145; 84484; 85025; 96361; 96374; 96375; 99284; J1171; J2405; J7030; J7040

== ENCOUNTER 2024-11-03 10:14 | Emergency (ER) | payer MEDICARE, BC ==
[~2024-11-03] VITALS: Ht 170.2 cm; Wt 77.0 kg
[2024-11-03 10:21] VITALS: TEMP 98.6
[2024-11-03 10:53] LABS: BASOPHILS % (AUTO) 0.5 % (0-1); EOSINOPHILS # (AUTO) 0.1 X10'3 (0-0.9); EOSINOPHILS % (AUTO) 1.3 % (0-6); HEMATOCRIT 47.6 % (35.0-45.0); HEMOGLOBIN 16.2 g/dl (12.0-16.0); LYMPHOCYTES # (AUTO) 1.6 X10'3 (1.1-4.8); MEAN CORPUSCULAR VOLUME 96.9 FL (78-98); MEAN PLATELET VOLUME 10.4 FL (7.4-10.4); MONOCYTES # (AUTO) 0.4 X10'3 (0-0.9); MONOCYTES % (AUTO) 4.4 % (2-12); NEUTROPHILS % (AUTO) 77.8 % (42-75); PLATELET COUNT 248 X10'3 (140-440); RED BLOOD COUNT 4.91 X10'6 (4.20-5.60); RED CELL DISTRIBUTION WIDTH 14.3 % (11.5-14.5); WHITE BLOOD COUNT 10.3 X10'3 (4.5-11.0)
[2024-11-03 11:08] LABS: ALANINE AMINOTRANSFERASE 29 U/L (12-78); ALBUMIN 3.3 G/DL (3.4-5.0); ALBUMIN/GLOBULIN RATIO 0.8 (1.1-1.5); ALKALINE PHOSPHATASE 118 IU/L (46-116); ANION GAP 10 (8-16); ASPARTATE AMINO TRANSFERASE 23 U/L (10-37); BILIRUBIN,TOTAL 0.5 MG/DL (0.1-1.0); BLOOD UREA NITROGEN 13 MG/DL (7-18); BUN/CREATININE RATIO 15.3 (10.0-20.0); CALCIUM 9.5 MG/DL (8.5-10.1); CHLORIDE 108 MMOL/L (99-107); CREATININE 0.85 MG/DL (0.40-0.90); GLUCOSE 150 MG/DL (70-104); SODIUM 142 MMOL/L (135-145); TOTAL PROTEIN 7.4 G/DL (6.4-8.2); eCRCL 58 ML/MIN; eGFR 66 ML/MIN
[2024-11-03 11:38] LABS: ETHANOL < 10 MG/DL (<10)
[2024-11-03 15:35] VITALS: BP 161/97; PULSE 78; RESP 16; O2SAT 97
== END 2024-11-03 15:45 | disposition home or self-care (01) ==
LOC: ER 10:15
DX: R51.9 Headache, unspecified (principal); M79.672 Pain in left foot; Z88.8 Allergy status to other drugs, medicaments and biological substances; Z86.73 Personal history of transient ischemic attack (TIA), and cerebral infarction without residual deficits; Z79.84 Long term (current) use of oral hypoglycemic drugs
CPT/HCPCS: 36415; 73630; 80053; 80320; 85025; 99284; L4360

== ENCOUNTER 2024-11-28 14:50 | Emergency (ER) | payer MEDICARE, BC ==
[~2024-11-28] VITALS: Ht 154.9 cm; Wt 72.7 kg
[~2024-11-28 14:50] MED LIST changes: +ASPI-1071 PO; +NICO-631 TD; +NYSPWD TP
[2024-11-28 17:00] VITALS: TEMP 98.4
[2024-11-28 17:24] VITALS: BP 201/104; PULSE 80; RESP 18; O2SAT 96
[2024-11-28 17:48] LABS: BASOPHILS # (AUTO) 0.1 X10'3 (0-0.2); BASOPHILS % (AUTO) 0.6 % (0-1); EOSINOPHILS # (AUTO) 0.1 X10'3 (0-0.9); EOSINOPHILS % (AUTO) 0.7 % (0-6); HEMATOCRIT 42.5 % (35.0-45.0); HEMOGLOBIN 14.4 g/dl (12.0-16.0); LYMPHOCYTES # (AUTO) 2.5 X10'3 (1.1-4.8); LYMPHOCYTES % (AUTO) 21.8 % (21-51); MEAN CORPUSCULAR HEMOGLOBIN 31.9 PG (27.0-31.0); MEAN CORPUSCULAR HGB CONC 33.8 g/dL (33.0-36.5); MEAN CORPUSCULAR VOLUME 94.5 FL (78-98); MEAN PLATELET VOLUME 10.2 FL (7.4-10.4); MONOCYTES # (AUTO) 0.8 X10'3 (0-0.9); NEUTROPHILS % (AUTO) 69.9 % (42-75); PLATELET COUNT 283 X10'3 (140-440); RED CELL DISTRIBUTION WIDTH 14.9 % (11.5-14.5); WHITE BLOOD COUNT 11.5 X10'3 (4.5-11.0)
[2024-11-28 17:53] LABS: ALBUMIN 3.5 G/DL (3.4-5.0); ANION GAP 11 (8-16); BLOOD UREA NITROGEN 16 MG/DL (7-18); BUN/CREATININE RATIO 18.6 (10.0-20.0); CALCIUM 8.8 MG/DL (8.5-10.1); CHLORIDE 100 MMOL/L (99-107); CREATININE 0.86 MG/DL (0.40-0.90); MAGNESIUM 1.6 MG/DL (1.5-2.4); SODIUM 138 MMOL/L (135-145); TOTAL CARBON DIOXIDE 26.6 MMOL/L (24-32); eCRCL 45 ML/MIN; eGFR 65 ML/MIN
[2024-11-28 18:00] LABS: GLUCOSE 129 MG/DL (70-104)
[2024-11-28 18:03] LABS: POTASSIUM 2.9 MMOL/L (3.5-5.1)
[2024-11-28] MEDS: HYDROcodone/acetaminophen 10/325mg tab PO ONE (18:27)
[2024-11-28] MEDS: potassium Cl 20 mEq SR tablet PO STA (18:28)
[2024-11-28] MEDS ORDERED: POTA-188 PO (18:35)
[2024-11-28] MEDS ORDERED: CLON2TAB21 PO (18:35)
== END 2024-11-28 18:33 | disposition home or self-care (01) ==
LOC: ER 14:51
DX: E87.6 Hypokalemia (principal); F41.9 Anxiety disorder, unspecified; Z88.8 Allergy status to other drugs, medicaments and biological substances
CPT/HCPCS: 36415; 80048; 83735; 85025; 93005; 99284

== ENCOUNTER 2024-12-22 15:20 | Emergency (ER) | payer MEDICARE, BC ==
[~2024-12-22] VITALS: Ht 172.7 cm; Wt 79.0 kg
[~2024-12-22 15:20] MED LIST changes: +ASPI-1397; +CLON2TAB21 PO; +DAPA10TA PO; +HYDR-3686; +TRAZ-251 PO; -ZOLP10TA PO
[2024-12-22 15:26] VITALS: TEMP 98.4
[2024-12-22] MEDS: hyDRALAzine 10mg tablet PO ONE (16:26)
[2024-12-22] MEDS: acetaminophen 325mg tablet PO ONE (16:26)
[2024-12-22 16:33] LABS: BASOPHILS # (AUTO) 0.1 X10'3 (0-0.2); BASOPHILS % (AUTO) 0.7 % (0-1); EOSINOPHILS % (AUTO) 0.3 % (0-6); HEMATOCRIT 44.3 % (35.0-45.0); HEMOGLOBIN 15.3 g/dl (12.0-16.0); LYMPHOCYTES # (AUTO) 2.2 X10'3 (1.1-4.8); LYMPHOCYTES % (AUTO) 21.7 % (21-51); MEAN CORPUSCULAR HEMOGLOBIN 33.1 PG (27.0-31.0); MEAN CORPUSCULAR HGB CONC 34.5 g/dL (33.0-36.5); MEAN CORPUSCULAR VOLUME 96.1 FL (78-98); MEAN PLATELET VOLUME 10.2 FL (7.4-10.4); MONOCYTES # (AUTO) 0.7 X10'3 (0-0.9); MONOCYTES % (AUTO) 7.3 % (2-12); PLATELET COUNT 325 X10'3 (140-440); RED BLOOD COUNT 4.61 X10'6 (4.20-5.60)
[2024-12-22 17:08] LABS: ALANINE AMINOTRANSFERASE 26 U/L (12-78); ALBUMIN 4.1 G/DL (3.4-5.0); ALBUMIN/GLOBULIN RATIO 1.1 (1.1-1.5); ALKALINE PHOSPHATASE 119 IU/L (46-116); ANION GAP 13 (8-16); ASPARTATE AMINO TRANSFERASE 19 U/L (10-37); BILIRUBIN,TOTAL 0.6 MG/DL (0.1-1.0); BLOOD UREA NITROGEN 10 MG/DL (7-18); CHLORIDE 103 MMOL/L (99-107); PRO BRAIN NATRIURETIC PEPTIDE 376 PG/ML (0-125); SODIUM 140 MMOL/L (135-145); eCRCL 103 ML/MIN; eGFR > 90 ML/MIN
[2024-12-22 17:21] LABS: CALCIUM 9.4 MG/DL (8.5-10.1); GLUCOSE 116 MG/DL (70-104)
[2024-12-22] MEDS: metoprolol tartrate 50mg tablet PO ONE (17:33)
[2024-12-22] MEDS: potassium Cl 20 mEq SR tablet PO STA (17:51)
[2024-12-22 17:53] VITALS: BP 177/87; PULSE 75; RESP 16; O2SAT 96
== END 2024-12-22 18:15 | disposition home or self-care (01) ==
LOC: ER 15:21
DX: R51.9 Headache, unspecified (principal); E87.6 Hypokalemia; I10 Essential (primary) hypertension; Z86.73 Personal history of transient ischemic attack (TIA), and cerebral infarction without residual deficits; Z88.8 Allergy status to other drugs, medicaments and biological substances
CPT/HCPCS: 36415; 71045; 80053; 83880; 84484; 85025; 93005; 99285

== ENCOUNTER 2025-03-19 12:31 | Emergency (ER) | payer MEDICARE ==
[~2025-03-19] VITALS: Ht 170.2 cm; Wt 81.0 kg
[~2025-03-19 12:31] MED LIST changes: +ACET-1008 PO; -ASPI-1397; -CLON2TAB21 PO; -GUAN1TAB PO; +GUAN1TAB62 PO; -METF-1203 PO; +METO-395 PO; +PANT40TA54 PO; +ZOLP-679 PO
[2025-03-19 14:10] VITALS: TEMP 98
--- NOTE | 2025-03-19 14:41 | ELECTROCARDIOGRAPH REPORT ---
[facility] Test Date: 2025-03-19 Test Time: 14:39:00 Pat Name: JOSHUA ANDERSON Department: [facility] Patient ID: [facility]-[id number] Room: Gender: F [employer]: : 1950 Requested By: [facility] Order Number: [id number] Reading MD: Dr. Daniel Ramos Measurements Intervals [place] Rate: 63 P: 31 OK: 197 QRS: 30 QRSD: 75 T: 35 QT: 445 QTc: 456 Interpretive Statements Sinus rhythm Abnormal R-wave progression, early transition Electronically Signed On 03-21-2025 11:02:[address] Daniel Ramos Please click the below link to view image of tracing.
[2025-03-19 14:59] LABS: BASOPHILS # (AUTO) 0.1 X10'3 (0-0.2); BASOPHILS % (AUTO) 0.6 % (0-1); EOSINOPHILS # (AUTO) 0.1 X10'3 (0-0.9); EOSINOPHILS % (AUTO) 1.1 % (0-6); HEMOGLOBIN 14.9 g/dl (12.0-16.0); LYMPHOCYTES # (AUTO) 1.7 X10'3 (1.1-4.8); LYMPHOCYTES % (AUTO) 21.2 % (21-51); MEAN CORPUSCULAR HEMOGLOBIN 33.1 PG (27.0-31.0); MEAN CORPUSCULAR HGB CONC 33.8 g/dL (33.0-36.5); MEAN PLATELET VOLUME 11.2 FL (7.4-10.4); MONOCYTES # (AUTO) 0.7 X10'3 (0-0.9); MONOCYTES % (AUTO) 8.7 % (2-12); NEUTROPHILS # (AUTO) 5.6 X10'3 (1.8-7.7); NEUTROPHILS % (AUTO) 68.4 % (42-75); PLATELET COUNT 253 X10'3 (140-440); RED BLOOD COUNT 4.49 X10'6 (4.20-5.60); WHITE BLOOD COUNT 8.2 X10'3 (4.5-11.0)
[2025-03-19 15:09] LABS: ALBUMIN 3.7 G/DL (3.4-5.0); ANION GAP 11 (8-16); BLOOD UREA NITROGEN 12 MG/DL (7-18); BUN/CREATININE RATIO 14.1 (10.0-20.0); CALCIUM 8.8 MG/DL (8.5-10.1); CHLORIDE 105 MMOL/L (99-107); CREATININE 0.85 MG/DL (0.40-0.90); GLUCOSE 128 MG/DL (70-104); LIPASE 26 U/L (16-77); POTASSIUM 3.6 MMOL/L (3.5-5.1); SODIUM 143 MMOL/L (135-145); TOTAL CARBON DIOXIDE 27.5 MMOL/L (24-32); eCRCL 58 ML/MIN; eGFR 66 ML/MIN
--- NOTE | 2025-03-19 15:37 | RADIOLOGY REPORT ---
DI CHEST,TWO VIEWS, HISTORY: confussion COMPARISON: None None TECHNICAL DATA: 2 view of the chest was obtained. FINDINGS: Lines and tubes: None Cardiomediastinal silhouette: normal Pulmonary vasculature: normal Lung expansion: normal Lung airspace: normal Lung interstitium: normal Pleura: normal Pneumothorax: no Bones: Unremarkable Other: no IMPRESSION: No acute intrathoracic abnormality.
[2025-03-19 15:51] LABS: LARGE PLATELETS FEW; PLATELET ESTIMATE NORMAL
--- NOTE | 2025-03-19 16:01 | Physician Documentation ---
History of Present Illness ~ Chief Complaint: See Chief Complaint Stated Complaint: LIGHT HEADED Time Seen by MD: 13:42 Primary Medical Doctor: NONE HPI Patient is seen today with complaints of headache and feeling like her head just does not feel right. Patient was actually just discharged a few days ago from inpatient stay where she was found to be hypokalemic. Patient denies any current chest pain or shortness of breath or abdominal pain or nausea, vomiting, diarrhea. Patient has no other concern or complaint at this time. Medication Reconciliation Allergies: Coded Allergies: gold Au 198 (Verified Allergy, Unknown, RASH, 11/03/24) nickel (Verified Allergy, Unknown, RASH, 11/03/24) Scheduled Amlodipine Besylate (Amlodipine Besylate), 1 TAB PO DAILY Aspirin (Ecotrin*), 1 TAB PO DAILY Atorvastatin Calcium (Atorvastatin Calcium), 1 TAB PO DAILY Dapagliflozin Propanediol (Farxiga), 1 TAB PO DAILY Escitalopram Oxalate (Lexapro), 1 TAB PO DAILY Guanfacine Hcl (Guanfacine Hcl), 1 TAB PO HS, (Reported) Losartan Potassium (Losartan Potassium), 50 MG PO DAILY Metoprolol Succinate (Metoprolol Succinate), 1 TAB PO DAILY Nicotine 14 MG Patch* (Habitrol 14 MG Patch*), 1 PATCH TD DAILY Nystatin (NYSTOP powder), 1 APPLIC TP BID Pantoprazole Sodium (Pantoprazole Sodium), 40 MG PO BKF Potassium Chloride* (K-Dur*), 1 TAB PO DAILY, (Reported) Spironolactone (Spironolactone), 1 TAB PO DAILY, (Reported) Topiramate (Topiramate), 1 TAB PO HS Zolpidem Tartrate (Ambien), 10 MG PO HS, (Reported) Scheduled PRN Acetaminophen (Tylenol), 1 TAB PO Q8H PRN for pain or fever, (Reported) Clonazepam (Clonazepam), 1 TAB PO DAILY PRN for for anxiety/agitation, (Reported) Trazodone HCl (Trazodone HCl), 2 TAB PO BID PRN for sleep, (Reported) Miscellaneous Medications Hydroxyzine Hcl* (Atarax*), 1, (Reported) Past Medical History Past Medical History: CVA/TIA/Stroke, High Cholesterol, Diabetes Past Surgical History: no surgical history Patient History: Patient reports no known family medical history. Smoking Status: Current every day smoker Lives In: Home Review of Systems Constitutional: Denies: chills, fever, weakness Eyes: Denies: pain, blurred vision ENT: Denies: ear pain, nose pain, throat pain, mouth pain Respiratory: Denies: cough, shortness of breath Cardiovascular: Denies: chest pain, palpitations Gastrointestinal: Denies: abdominal pain, nausea, vomiting Genitourinary: Denies: burning, dysuria Female Genitalia: Denies: vaginal discharge, pelvic pain Neurological: Denies: headache, dizziness Musculoskeletal: Denies: pain, swelling Integumentary: Denies: rash, lesions Allergic/Immunologic: Denies: hives, itching Hematologic/Lymphatic: Denies: no symptoms reported Psychiatric: Denies: depression, anxiety Physical Exam Vital Signs: Temperature: 98.0, Source: Oral, Heart Rate: 70, Respiratory Rate: 15, BP: 155/69, Pulse Oximetry: 99, Weight: 81.000 Oxygen Flow Rate: 0 Physical Exam General: Awake and Alert, no acute distress. HEENT: Conjunctiva pink, Sclera clear, Mucus Membranes moist. Neck: Supple without masses and tenderness. Resp: Unlabored. Lungs clear to auscultation bilaterally. Heart: Regular Rate and rhythm, normal S1 and S2 without murmur, rub or gallop. Abdomen: Soft and non tender no organomegaly Extremities: No cyanosis,clubbing or edema. Skin: Warm and Dry. Progress Results/Orders Results/Orders Orders - [facility] PAC Urinalysis, Cult If Indicated (03/19/25 14:22) Chest,Two Views (03/19/25 14:22) Hs Troponin I W Calculations (03/19/25 16:22) Hs Troponin I W Calculations (03/19/25 17:22) Completed Orders - [facility] PAC Cbc/Diff (03/19/25 14:22) Lipase (03/19/25 14:22) Electrocardiogram (03/19/25 14:22) Chest,Two Views (03/19/25 14:22) Ammonia (03/19/25 14:22) BMP (03/19/25 14:22) Hs Troponin I W Calculations (03/19/25 14:22) Vital Signs 03/19/25 03/19/25 12:45 14:10 Temp 98.0 98.0 Pulse 74 70 Resp 16 15 B/P (MAP) 146/74 155/69 (97) Pulse Ox 99 O2 Flow Rate 0 0 Laboratory Tests Test 03/19/25 14:35 03/19/25 14:41 03/19/25 15:17 White Blood Count 8.2 Red Blood Count 4.49 Hemoglobin 14.9 Hematocrit 44.0 Mean Corpuscular Volume 98.0 Mean Corpuscular Hemoglobin 33.1 H Mean Corpuscular Hemoglobin Concent 33.8 Red Cell Distribution Width 15.0 H Platelet Count 253 Mean Platelet Volume 11.2 H Neutrophils (%) (Auto) 68.4 Lymphocytes (%) (Auto) 21.2 Monocytes (%) (Auto) 8.7 Eosinophils (%) (Auto) 1.1 Basophils (%) (Auto) 0.6 Neutrophils # (Auto) 5.6 Lymphocytes # (Auto) 1.7 Monocytes # (Auto) 0.7 Eosinophils # (Auto) 0.1 Basophils # (Auto) 0.1 CBC Comment Platelet Estimate Normal Large Platelets Few Red Blood Cell Morphology Perf Basophilic Stippling Macrocytosis 1+ Sodium Level 143 Potassium Level 3.6 Chloride Level 105 Carbon Dioxide Level 27.5 Anion Gap 11 Blood Urea Nitrogen 12 Creatinine 0.85 Estimated GFR/1.73 m2 66 BUN/Creatinine Ratio 14.1 Glucose Level 128 H Calcium Level 8.8 Ammonia < 10 L Albumin 3.7 Lipase 26 Chemistry Comments Troponin I High Sensitivity 10 Glucometer 103 Medical Decision Making Findings Patient is seen today with complaints of headache and feeling like her head just does not feel right. Patient was actually just discharged a few days ago from inpatient stay where she was found to be hypokalemic. Patient denies any current chest pain or shortness of breath or abdominal pain or nausea, vomiting, diarrhea. Patient has no other concern or complaint at this time. Patient's labs are largely unremarkable. Patient has no sign of hypokalemia today. Shared decision-making utilized with the patient today. Patient states she is feeling a little better after dose of Tylenol and ibuprofen and she would like to go home now. Patient will follow up with primary care and get referral to Neurology for further eval and treatment. Patient will return to ED with any worsening, concerning or changing symptoms. Departure Disposition: HOME / SELF CARE / HOMELESS Impression: Primary Impression: Head ache Qualified Codes: G44.209 - Tension-type headache, unspecified, not i ntractable Condition: Improved Additional Instructions: Patient's labs are largely unremarkable. Patient has no sign of hypokalemia today. Shared decision-making utilized with the patient today. Patient states she is feeling a little better after dose of Tylenol and ibuprofen and she would like to go home now. Patient will follow up with primary care and get referral to Neurology for further eval and treatment. Patient will return to ED with any worsening, concerning or changing symptoms. Referrals: NO PRIMARY CARE PROVIDER (PCP) Signature Scribe Signature: No scribe Attestation: No scribe [facility] PAC March 19, 2025 16:01
[2025-03-19] MEDS: acetaminophen 325mg tablet PO ONE (16:53)
[2025-03-19] MEDS: ibuprofen tablet 400 MG TABLET PO STA (16:53)
[2025-03-19 16:56] VITALS: BP 126/57; PULSE 63; RESP 16; O2SAT 98
== END 2025-03-19 17:21 | disposition home or self-care (01) ==
LOC: ER 12:33
DX: R51.9 Headache, unspecified (principal); E11.9 Type 2 diabetes mellitus without complications; E78.00 Pure hypercholesterolemia, unspecified; Z86.73 Personal history of transient ischemic attack (TIA), and cerebral infarction without residual deficits; F17.200 Nicotine dependence, unspecified, uncomplicated; Z88.8 Allergy status to other drugs, medicaments and biological substances
CPT/HCPCS: 36415; 71046; 80048; 82140; 82948; 83690; 84484; 85008; 85025; 93005; 99285